=== PATIENT | female | born 1990 | race Two or more races ===

== ENCOUNTER 2019-08-15 04:14 | Emergency (ER) | payer OTHER ==
[~2019-08-15] VITALS: Ht 162.6 cm; Wt 77.1 kg
[~2019-08-15 04:14] MED LIST: DURICEF PO; ZANTAC150 M3 PO
[2019-08-15] MEDS ORDERED: TYLENOL-CODEINE1 TA1 (04:22)
[2019-08-15] MEDS ORDERED: ACTIDOGESIC CA1 EACH (04:22)
[2019-08-15] MEDS ORDERED: ACETAMINOPHEN-1 EAC2 (04:23)
[2019-08-15] MEDS ORDERED: AMOXICILLIN500 M1 (04:23)
[2019-08-15] MEDS ORDERED: ZANTAC150 MG PO (07:28)
[2019-08-15] MEDS ORDERED: OMEPRAZOLE40 MG PO (07:28)
== END 2019-08-15 08:04 | disposition home or self-care (01) ==
LOC: ER 04:14
DX: K29.60 Other gastritis without bleeding (principal); R10.84 Generalized abdominal pain